=== PATIENT | female | born 1985 | race Caucasian/White ===

== ENCOUNTER 2023-03-06 08:02 | Outpatient (CLI) | payer SELFPAY | END 2023-03-06 08:03 | disposition home or self-care (01) | LOC: NFLDREF 03-09 08:49 | PROVIDERS: PCP Physician Assistant Medical; Referring Provider Physician Assistant Medical; Visit Provider Physician Assistant Medical | DX: R53.83 Other fatigue (principal) | CPT/HCPCS: 80053; 80061; 82306; 82607; 82728; 84443 ==

== ENCOUNTER 2023-07-12 07:52 | Outpatient (CLI) | payer SELFPAY | END 2023-07-12 07:53 | disposition home or self-care (01) | LOC: NFLDREF 07-13 06:46 | PROVIDERS: PCP Physician Assistant Medical; Referring Provider Physician Assistant Medical; Visit Provider Physician Assistant Medical | DX: R79.89 Other specified abnormal findings of blood chemistry (principal) | CPT/HCPCS: 82306 ==

== ENCOUNTER 2023-10-23 13:59 | Outpatient (REF) | payer OTHER, SELFPAY ==
[2023-10-23 14:37] LABS: Amphetamine Screen Urine Negative (Negative); Barbiturate Screen Urine Negative (Negative); Benzodiazepines Screen Urine Negative (Negative); Cannabinoid Screen Urine Negative (Negative); Cocaine Screen Urine Negative (Negative); Methadone Screen Urine Negative (Negative); Methamphetamines Screen Urine Negative (Negative); Opiate Screen Urine Negative (Negative); Oxycodone Screen Urine Negative (Negative); Phencyclidine Screen Urine Negative (Negative); Tricyclic Antidepressant Urine Negative (Negative)
== END 2023-10-23 14:00 | disposition home or self-care (01) ==
LOC: NPINS 13:59
PROVIDERS: PCP Physician Assistant Medical; Visit Provider Nurse Practitioner Psychiatric/Mental Health
DX: Z00.00 Encounter for general adult medical examination without abnormal findings (principal)
CPT/HCPCS: 80306

== ENCOUNTER 2024-09-03 13:15 | Outpatient (REF) | payer OTHER, SELFPAY ==
[2024-09-03 13:44] LABS: Amphetamine Screen Urine Negative (Negative); Barbiturate Screen Urine Negative (Negative); Benzodiazepines Screen Urine Negative (Negative); Cannabinoid Screen Urine Negative (Negative); Cocaine Screen Urine Negative (Negative); Methadone Screen Urine Negative (Negative); Methamphetamines Screen Urine Negative (Negative); Opiate Screen Urine Negative (Negative); Oxycodone Screen Urine Negative (Negative); Phencyclidine Screen Urine Negative (Negative); Tricyclic Antidepressant Urine Negative (Negative)
[2024-09-03 14:16] LABS: Hemoglobin A1C* 4.9 % (0-5.6)
[2024-09-03 14:19] LABS: Chloride* 97 mmol/L (96-114); Sodium* 134 mmol/L (135-149)
[2024-09-03 14:20] LABS: Potassium* 4.6 mmol/L (3.6-5.1)
[2024-09-03 14:22] LABS: Anion Gap 7 mEq/L (7-15); Blood Urea Nitrogen* 13 mg/dL (5-24); Carbon Dioxide* 30 mmol/L (20-32); Cholesterol* 163 mg/dL (90-199); Creatinine* 0.8 mg/dL (0.5-1.5); Estimated Glomerular Filt Rate 97 ml/min
[2024-09-03 14:23] LABS: Calcium* 9.3 mg/dL (8.4-10.6); Glucose* 83 mg/dL (60-115); HDL Cholesterol* 82 mg/dL (>=50); Iron* 161 ug/dL (37-170); LDL Cholesterol Calculated 62 mg/dL (<100); Magnesium* 1.9 mg/dL (1.5-2.6); Triglycerides* 97 mg/dL (40-149)
[2024-09-03 14:40] LABS: Free T4 Free Thyroxine* 0.99 ng/dL (0.70-1.85)
[2024-09-03 14:41] LABS: Vitamin D 25 Hydroxy* 30 ng/mL (30-80)
[2024-09-03 14:58] LABS: Ferritin* 7.7 ng/mL (6.24-137.0)
[2024-09-03 15:13] LABS: Vitamin B12* 297 pg/mL (243-894)
[2024-09-04 18:50] LABS: Folate, Serum 9.2 ng/mL (>=5.9)
[2024-09-05 07:54] LABS: Total T3 126 ng/dL (80-200)
== END 2024-09-03 13:16 | disposition home or self-care (01) ==
LOC: NPINS 13:15
PROVIDERS: PCP Nurse Practitioner Psychiatric/Mental Health; Visit Provider Physician Assistant Medical
DX: Z00.00 Encounter for general adult medical examination without abnormal findings (principal); F90.9 Attention-deficit hyperactivity disorder, unspecified type; Z00.8 Encounter for other general examination
CPT/HCPCS: 80048; 80061; 80306; 82306; 82607; 82728; 82746; 83036; 83540; 83735; 84439; 84443; 84480; 84630